=== PATIENT | male | born 1965 | race Caucasian/White ===

== ENCOUNTER 2016-07-17 02:40 | Emergency (ER) | payer OTHER ==
[~2016-07-17] VITALS: Ht 180.3 cm; Wt 74.8 kg
[~2016-07-17 02:40] MED LIST: BLOO-140 IN; INSU100V13 SQ; INSU100V27 SQ
[2016-07-17] MEDS ORDERED: IV NS 0.9% 1,000 ML BAG IV ONE (03:30)
[2016-07-17 03:39] LABS: DIFF TOTAL % 100 %; EOSINOPHILS # (AUTO) 0.3 /CMM (0.0-0.7); HEMATOCRIT 31 % (39-51); HEMOGLOBIN 10.3 g/dL (13.5-17.5); LYMPHOCYTES # (AUTO) 1.4 /CMM (0.8-4.8); LYMPHOCYTES % (AUTO) 25.5 % (20.0-44.0); MEAN CORPUSCULAR HEMOGLOBIN 33 PG (26.0-33.0); MEAN CORPUSCULAR HGB CONC 34 g/dl (31.0-36.0); MEAN CORPUSCULAR VOLUME 97 fL (80-96); MONOCYTES # (AUTO) 0.3 /CMM (0.1-1.30); MONOCYTES % (AUTO) 6.1 % (2.0-12.0); NEUTROPHILS # (AUTO) 3.4 /CMM (1.8-8.9); NEUTROPHILS % (AUTO) 62.4 % (43.0-81.0); PLATELET COUNT (AUTO) 174 /CMM (150-450); RED BLOOD CELL COUNT(AUTO) 3.18 MIL/uL (4.5-6.0); WHITE BLOOD COUNT (AUTO) 5.4 K/uL (4.3-11.0)
[2016-07-17 03:53] LABS: ALANINE AMINOTRANSFERASE 85 U/L (12-78); ALBUMIN 3.4 g/dL (3.4-5.0); ANION GAP 12 (5-14); ASPARTATE AMINOTRANSFERASE 97 U/L (15-37); BILIRUBIN,DIRECT 0.2 mg/dL (0.0-0.2); BILIRUBIN,TOTAL 0.5 mg/dL (0.2-1.0); CALCIUM, SERUM 9.4 mg/dL (8.5-10.1); CARBON DIOXIDE 29 mmol/L (21-32); CHLORIDE 100 mmol/L (98-107); CREATININE 1.8 mg/dL (0.6-1.3); GFR 40 mL/min (>60); GLUCOSE 341 mg/dL (74-106); INDIRECT BILIRUBIN 0.3 mg/dL (0.0-1.1); POTASSIUM 4.3 mmol/L (3.5-5.1); SALICYLATE 4.3 mg/dL (2.8-20.0); SODIUM SERUM 137 mmol/L (136-145); TOTAL PROTEIN, SERUM 7.1 g/dL (6.4-8.2); UREA NITROGEN, BLOOD 15 mg/dL (7-18)
[2016-07-17 03:53] LABS: ABG BASE EXCESS 3.1 mmol/L; ABG HCO3 27.8 mmol/L; ABG PCO2 42.6 mmHg (35.0-45.0); ABG PH 7.432 (7.350-7.450); ABG PO2 73.3 mmHg (75.0-100.0); ABG TOTAL HEMOGLOBIN 11.2 G/dL (13.5-18.0); AaDO2 25.4 mmHg; O2Hb 91.2 % (94.0-97.0)
[2016-07-17] MEDS ORDERED: IV SET PRIMARY 1 EA INFUS.SET MC ONE (03:58)
[2016-07-17] MEDS ORDERED: IV NS 0.9% 1,000 ML ONE (03:58)
[2016-07-17 05:22] LABS: ACETAMINOPHEN 0 ug/ml (10-30)
[2016-07-17 06:45] LABS: KETONES,URINE NEGATIVE (NEGATIVE); LEUKOCYTE ESTERASE ,URINE NEGATIVE (NEGATIVE); PH,URINE 6.5 (5.0-8.0)
[2016-07-17 06:49] LABS: ADD UA MICROSCOPIC YES
[2016-07-17 06:50] LABS: ADD URINE CULTURE NO; RBC,URINE 0-2 /HPF (0-2); WBC,URINE 0-2 /HPF (0-3)
[2016-07-17 07:09] LABS: CANNABINOID, URINE NEGATIVE (NEGATIVE); PHENCYCLIDINE SCREEN,URINE NEGATIVE (NEGATIVE)
[2016-07-17 10:21] VITALS: BP 128/75
== END 2016-07-17 10:23 ==
LOC: ER 02:40
DX: F32.9 Major depressive disorder, single episode, unspecified (principal); R45.851 Suicidal ideations; E11.65 Type 2 diabetes mellitus with hyperglycemia; R74.8 Abnormal levels of other serum enzymes; F17.200 Nicotine dependence, unspecified, uncomplicated; G62.9 Polyneuropathy, unspecified; Z79.4 Long term (current) use of insulin; Z90.49 Acquired absence of other specified parts of digestive tract
CPT/HCPCS: 36415; 36600; 80048; 80076; 80305; 81001; 82962; 85025; 96360; 99285; A4606; G0480; G0481; G0482; J7030; Z7610; 81000-TC; G6038-TC; G6039-TC; G6040-TC

== ENCOUNTER 2016-12-15 19:41 | Inpatient (IN) | payer OTHER ==
[~2016-12-15] VITALS: Ht 175.3 cm; Wt 72.3 kg
[~2016-12-15 19:41] MED LIST changes: -INSU100V13 SQ; +INSU100V7 SQ
--- NOTE | 2016-12-15 19:42 | NUR ---
[facility] ER BED 16. HERE FOR ETOH. PT STATES DRINK TWO BIG CANS OF BEER TODAY AND STARTED FEELING SICK. GENERALIZED BODY ACHES. PT'S BLOOD SUGAR WAS 220 PER REPORT. GOWNED AND PLACED ON MONITOR. STABLE VITALS. AWAITING MD CALZADA.
[2016-12-15] MEDS ORDERED: IV NS 0.9% 1,000 ML BAG IV ONE (20:00)
--- NOTE | 2016-12-15 20:00 | NUR ---
PT REFUSED EKG. DR. SALAZAR NOTIFIED.
[2016-12-15 20:11] LABS: BASOPHILS % (AUTO) 0.5 % (0.0-2.0); EOSINOPHILS # (AUTO) 0.1 /CMM (0.0-0.7); EOSINOPHILS % (AUTO) 1.5 % (0.0-6.0); HEMATOCRIT 46 % (39-51); HEMOGLOBIN 15.4 g/dL (13.5-17.5); LYMPHOCYTES # (AUTO) 1.7 /CMM (0.8-4.8); LYMPHOCYTES % (AUTO) 27.7 % (20.0-44.0); MEAN CORPUSCULAR HEMOGLOBIN 32 PG (26.0-33.0); MEAN CORPUSCULAR HGB CONC 34 g/dl (31.0-36.0); MEAN CORPUSCULAR VOLUME 94 fL (80-96); MONOCYTES # (AUTO) 0.3 /CMM (0.1-1.30); MONOCYTES % (AUTO) 4.9 % (2.0-12.0); NEUTROPHILS # (AUTO) 4.1 /CMM (1.8-8.9); NEUTROPHILS % (AUTO) 65.4 % (43.0-81.0); PLATELET COUNT (AUTO) 198 /CMM (150-450); RDW COEFFICIENT OF VARIATION 14.5 (11.5-15.0); RED BLOOD CELL COUNT(AUTO) 4.84 MIL/uL (4.5-6.0); WHITE BLOOD COUNT (AUTO) 6.2 K/uL (4.3-11.0)
--- NOTE | 2016-12-15 20:12 | NUR ---
DR SALAZAR AT BEDSIDE FOR EVAL.
[2016-12-15] MEDS ORDERED: IV SET PRIMARY 1 EA INFUS.SET MC ONE (20:13)
[2016-12-15] MEDS ORDERED: IV NS 0.9% 1,000 ML ONE ×2 (20:13→23:05)
[2016-12-15] MEDS ORDERED: ACETAMINOPHEN ES 500 MG TABLET ONE (20:18)
[2016-12-15 20:27] LABS: TROPONIN I 0.086 ng/mL (0.00-0.056)
[2016-12-15] MEDS ORDERED: ONDANSETRON 4 MG TAB.RAPDIS ONE (20:27)
[2016-12-15] MEDS ORDERED: ACETAMINOPHEN ES 500 MG TABLET PO ONE (20:30)
--- NOTE | 2016-12-15 20:32 | NUR ---
PT REFUSING TYLENOL AND REQUESTED ZOFRAN FOR NAUSEA. DR SALAZAR AWARE. ZOFRAN 4MG SL GIVEN PER ERMD VERBAL ORDER.
--- NOTE | 2016-12-15 20:43 | NUR ---
PT TO RADIOLOGY FOR HEAD CT SCAN VIA [facility].
[2016-12-15 20:53] LABS: CREATININE 1.5 mg/dL (0.6-1.3); POTASSIUM 4.2 mmol/L (3.5-5.1)
--- NOTE | 2016-12-15 20:55 | NUR ---
PT IS REQUESTING IV PAIN MEDICATION. AGITATED, YELLING AND CURSING AT STAFF. DR SALAZAR MADE AWARE.
[2016-12-15] MEDS ORDERED: ONDANSETRON 4 MG TAB.RAPDIS SL ONE (21:00)
[2016-12-15 21:02] LABS: ALBUMIN 3.9 g/dL (3.4-5.0); BILIRUBIN,DIRECT 0.1 mg/dL (0.0-0.2); BILIRUBIN,TOTAL 0.5 mg/dL (0.2-1.0); SALICYLATE 4.8 mg/dL (2.8-20.0); TOTAL PROTEIN, SERUM 7.8 g/dL (6.4-8.2)
--- NOTE | 2016-12-15 21:20 | NUR ---
TELE 304
--- NOTE | 2016-12-15 21:25 | NUR ---
RADIOLOGY AT BEDSIDE FOR CHEST XRAY.
--- NOTE | 2016-12-15 21:35 | NUR ---
PAGED DR EDWIN TILLMAN CIGAR PACKER AND GRADER FOR [facility]
--- NOTE | 2016-12-15 21:47 | NUR ---
BLOOD SUGAR RECHECK 246 MG/DL. ERMD AWARE.
--- NOTE | 2016-12-15 22:08 | NUR ---
REPORT GIVEN TO [facility]. PT AWAITING TREANSFER TO FLOOR.
[2016-12-15 22:14] VITALS: BP 111/71
--- NOTE | 2016-12-15 22:14 | NUR ---
PATIENT RECEIVED FROM ER, WITH DX OF NSTEMI AND SYNCOPE, ALERT AND ORIENTED X4, CALM, NO SOB, NO RESPIRATORY DISTRESS, ON ROOM AIR, 02 SAT 98%, LUNG SOUNDS ARE CLEAR, DENIES ANY PAIN AT THIS TIME, ABDOMEN SOFT AND NON-TENDER, CONTINENT OF BOWEL AND BLADDER. ABLE TO USE URINAL. STEADY GAIT, SKIN ASSESSMENT PERFORMED. OVERALL SKIN CONDITION IS INTACT, ORIENTED TO USE OF CALL LIGHT, TOILET, AND TV CONTROL. KEPT SAFE AND COMFORTABLE, NEEDS ATTENDED, WILL CONTINUE TO MONITOR.
[2016-12-15] MEDS ORDERED: ONDANSETRON HCL/PF 4 MG/2 ML VIAL IVP PRN (22:30)
[2016-12-15] MEDS ORDERED: ZOLPIDEM TARTRATE 5 MG TABLET PO PRN (22:30)
[2016-12-15] MEDS ORDERED: ACETAMINOPHEN 325 MG TABLET PO PRN (22:30)
[2016-12-15] MEDS ORDERED: Z GUARD REMEDY 2 OZ OINT TP PRN (22:30)
[2016-12-15] MEDS ORDERED: MAGNESIUM HYDROXIDE 30 ML UDC PO PRN (22:30)
[2016-12-15] MEDS ORDERED: DEXTROSE 50%-WATER 50 ML DISP.SYRIN IV PRN (22:30)
[2016-12-15] MEDS ORDERED: MAG HYDROX/AL HYDROX/SIMETH 30 ML UDC PO PRN (22:30)
[2016-12-15] MEDS ORDERED: ASPIRIN 81 MG TAB.CHEW PO ONE (22:30)
[2016-12-15] MEDS ORDERED: ASPIRIN 81 MG TAB.CHEW ONE (23:03)
[2016-12-15] MEDS ORDERED: IV SET PRIMARY PUMP SET 1 EA INFUS.SET MC ONE (23:05)
--- NOTE | 2016-12-15 23:14 | NUR ---
SMOKING CESSATION PROVIDED TO PATIENT, DR. TILLMAN ORDERED NICOTINE PATCH 21 MG DAILY.
[2016-12-15] MEDS: IV NS 0.9% 1,000 ML IV PRN (23:16)
--- NOTE | 2016-12-15 23:19 | NUR ---
BG 235 MG/DL
[2016-12-16] VITALS (8 sets, daily range): BP systolic 131–157; BP diastolic 83–96
[2016-12-16] MEDS ORDERED: HYDROCODONE/APAP 5/325MG 1 EACH TABLET ONE (05:15)
[2016-12-16] MEDS: HYDROCODONE/APAP 5/325MG 1 EACH TABLET PO PRN ×5 (05:22→22:28)
[2016-12-16] MEDS: INSULIN REGULAR, HUMAN 100 UNIT/ML 3 ML VIAL SQ PRN ×3 (06:25→17:56)
--- NOTE | 2016-12-16 06:30 | NUR ---
PATIENT IS ALERT AND AWAKE, NO SOB, NO RESPIRATORY DISTRESS, PAIN TO RIGHT SIDE OF ABDOMEN IS NOW 4/10, DENIES CHEST PAIN, RIGHT AC PERIPHERAL LINE IS PATENT AND INFUSING WELL. NO ADVERSE CHANGE OF CONDITION DURING SHIFT, ALL NEEDS ATTENDED, CALL LIGHT WITHIN REACH.
--- NOTE | 2016-12-16 07:13 | NUR ---
SINGING TELEGRAM PERFORMER OPENING NOTES RECEIVED PATIENT AWAKE IN BED IN NO ACUTE SIGNS OF DISTRESS. A/O X 4, NO COMPLAINTS OF PAIN OR DISCOMFORTS AT THIS TIME. ON TELE-MONITORING WITH READING OF SR WITH HR OF 90-100 AT THIS TIME. ON ROOM AIR, NO RESPIRATORY DISTRESS NOTED. IV ACCESS ON RIGHT AC INTACT AND PATENT WITH IVF OF NS @100ML/HR INFUSING WELL. CALL LIGHT WITHIN REACH. BED LOW AND LOCKED. WILL CONTINUE TO MONITOR ACCORDINGLY.
[2016-12-16 07:29] LABS: BASOPHILS % (AUTO) 0.8 % (0.0-2.0); EOSINOPHILS # (AUTO) 0.2 /CMM (0.0-0.7); EOSINOPHILS % (AUTO) 3.1 % (0.0-6.0); HEMATOCRIT 37 % (39-51); HEMOGLOBIN 13.2 g/dL (13.5-17.5); LYMPHOCYTES # (AUTO) 1.5 /CMM (0.8-4.8); LYMPHOCYTES % (AUTO) 30.6 % (20.0-44.0); MEAN CORPUSCULAR HEMOGLOBIN 33 PG (26.0-33.0); MEAN CORPUSCULAR HGB CONC 36 g/dl (31.0-36.0); MEAN CORPUSCULAR VOLUME 92 fL (80-96); MONOCYTES # (AUTO) 0.3 /CMM (0.1-1.30); MONOCYTES % (AUTO) 5.7 % (2.0-12.0); NEUTROPHILS % (AUTO) 59.8 % (43.0-81.0); PLATELET COUNT (AUTO) 163 /CMM (150-450); RDW COEFFICIENT OF VARIATION 15.4 (11.5-15.0); RED BLOOD CELL COUNT(AUTO) 4.01 MIL/uL (4.5-6.0); WHITE BLOOD COUNT (AUTO) 4.9 K/uL (4.3-11.0)
[2016-12-16 07:56] LABS: CHOLESTEROL 156 mg/dL (<200); HDL CHOLESTEROL 32 mg/dL (40-60); LDL 65 mg/dL (0-99); TRIGLYCERIDES 298 mg/dL (30-150)
[2016-12-16 07:57] LABS: ALBUMIN 3.3 g/dL (3.4-5.0); BILIRUBIN,TOTAL 0.6 mg/dL (0.2-1.0); CALCIUM, SERUM 8.5 mg/dL (8.5-10.1); CREATININE 1.5 mg/dL (0.6-1.3); MAGNESIUM 1.8 mg/dL (1.8-2.4); PHOSPHORUS 3.1 mg/dL (2.5-4.9); POTASSIUM 3.9 mmol/L (3.5-5.1); TOTAL PROTEIN, SERUM 6.8 g/dL (6.4-8.2)
[2016-12-16] MEDS: FOLIC ACID 1 MG TABLET PO SCH (08:15)
[2016-12-16] MEDS: BLOOD SUGAR DIAGNOSTIC 1 EACH STRIP IN SCH ×4 (08:15→22:12)
[2016-12-16] MEDS: THIAMINE HCL 100 MG TABLET PO SCH (08:15)
[2016-12-16] MEDS: PANTOPRAZOLE 40 MG TABLET.DR PO SCH (08:15)
[2016-12-16] MEDS: NICOTINE PATCH (21MG) 21 MG PATCH.TD24 TD SCH (08:17)
[2016-12-16] MEDS: INSULIN DETEMIR 100 UNIT/ML CARTRIDGE SQ SCH (09:35)
[2016-12-16] MEDS: IV NS 0.9% 1,000 ML IV PRN (12:44)
[2016-12-16] MEDS: GABAPENTIN 300 MG CAPSULE PO SCH (17:29)
--- NOTE | 2016-12-16 18:08 | NUR ---
RN NOTES EEG DONE, RESULTS PENDING. WILL FOLLOW-UP
--- NOTE | 2016-12-16 18:49 | NUR ---
[employer] FACTORY WORKER CLOSING NOTES PATIENT IN BED AWAKE AND WATCHING TV. A/O X 4 WITH COMPLAINTS OF PAIN TO RIGHT SIDE OF ABDOMEN THIS TOUR, PRN NORCO 5/225MG GIVEN WITH GOOD RESULTS. ALL NEEDS AND CARE PROVIDED WELL. ON TELE-MONITORING WITH READING OF SINUS TACHY WITH HR OF 107 AT THIS TIME. ON ROOM AIR, NO SOB NOTED. IV ACCESS ON RIGHT AC INTACT AND PATENT WITH IVF OF NS @100ML/HR INFUSING WELL. CALL LIGHT WITHIN REACH. BED LOW AND LOCKED. ALL SAFETY PRECAUTIONS MAINTAINED. WILL CONTINUE TO MONITOR ACCORDINGLY.
--- NOTE | 2016-12-16 20:00 | NUR ---
MS REEL OPERATOR INITIAL NOTES RECEIVED PT IN BED AWAKE AND ALERT WATCHING TV AT THIS TIME, DENIES ANY PAIN OR ANY DISCOMFORT. DENIES ANY CHEST PAIN. NS AT 100ML/HR INFUSING ON HIS RIGHT AC PATENT AND INTACT. KEPT HIM COMFORTABLE AT ALL TIMES. WILL CONTINUE TO MONITOR. PLACE CALL LIGHT AT REACH.
[2016-12-16] MEDS: LORAZEPAM 1 MG TABLET PO PRN (20:40)
--- NOTE | 2016-12-16 20:40 | NUR ---
MS THRESHING MACHINE OPERATOR NOTES ATIVAN GIVEN PER PT REQUESTED ORDERED. SAFETY PRECAUTION APPLIED FOR PT SAFETY. PLACE CALL LIGHT AT REACH.
[2016-12-16] MEDS: *INSULIN REGULAR(HUMULIN R)HUM 100 UNIT/ML VIAL SQ PRN (22:17)
--- NOTE | 2016-12-16 22:30 | NUR ---
WIRE ROLLER/NOTES BLOOD SUGAR CHECKED DONE 238, 4 UNITS OF INSULIN GIVEN , SNACKS ALSO SERVED. NORCO TABLET ALSO GIVEN FOR HIS PAIN ON HIS RIGHT SIDE. KEPT HIM COMFORTABLE AT ALL TIMES. WILL CONTINUE TO MONITOR. PLACE CALL LIGHT AT REACH.
--- NOTE | 2016-12-17 01:35 | NUR ---
ICT SECURITY SPECIALIST/NOTES PT SLEEPING COMFORTABLY AT THIS TIME. RESPIRATION EVEN AND UN-LABORED. KEPT HIM COMFORTABLE AT ALL TIMES. WILL CONTINUE TO MONITOR. PLACE CALL LIGHT AT REACH.
[2016-12-17] MEDS: HYDROCODONE/APAP 5/325MG 1 EACH TABLET PO PRN ×5 (03:55→21:19)
[2016-12-17] MEDS: LORAZEPAM 1 MG TABLET PO PRN ×4 (06:03→20:03)
[2016-12-17] MEDS: BLOOD SUGAR DIAGNOSTIC 1 EACH STRIP IN SCH ×4 (06:03→21:16)
--- NOTE | 2016-12-17 06:03 | NUR ---
LONG TERM CARE PHLEBOTOMIST NOTES ATIVAN GIVEN PER PT REQUESTED. PT AWARE OF POSSIBLE SIDE EFFECT. RESPIRATION EVEN AND UNLABORED. KEPT HIM COMFORTABLE AT ALL TIMES. PLACE CALL LIGHT AT REACH.
[2016-12-17] MEDS: INSULIN REGULAR, HUMAN 100 UNIT/ML 3 ML VIAL SQ PRN ×2 (06:06→12:09)
[2016-12-17] MEDS: PANTOPRAZOLE 40 MG TABLET.DR PO SCH (06:06)
[2016-12-17 06:53] LABS: BASOPHILS % (AUTO) 0.4 % (0.0-2.0); EOSINOPHILS # (AUTO) 0.1 /CMM (0.0-0.7); EOSINOPHILS % (AUTO) 1.9 % (0.0-6.0); HEMATOCRIT 37 % (39-51); HEMOGLOBIN 13.1 g/dL (13.5-17.5); LYMPHOCYTES # (AUTO) 1.6 /CMM (0.8-4.8); LYMPHOCYTES % (AUTO) 29.5 % (20.0-44.0); MEAN CORPUSCULAR HEMOGLOBIN 33 PG (26.0-33.0); MEAN CORPUSCULAR HGB CONC 35 g/dl (31.0-36.0); MEAN CORPUSCULAR VOLUME 93 fL (80-96); MONOCYTES # (AUTO) 0.5 /CMM (0.1-1.30); MONOCYTES % (AUTO) 8.6 % (2.0-12.0); NEUTROPHILS # (AUTO) 3.2 /CMM (1.8-8.9); NEUTROPHILS % (AUTO) 59.6 % (43.0-81.0); PLATELET COUNT (AUTO) 132 /CMM (150-450); RDW COEFFICIENT OF VARIATION 15.5 (11.5-15.0); RED BLOOD CELL COUNT(AUTO) 3.99 MIL/uL (4.5-6.0); WHITE BLOOD COUNT (AUTO) 5.4 K/uL (4.3-11.0)
--- NOTE | 2016-12-17 06:57 | NUR ---
MS LANDS RESOURCE MANAGER CLOSING NOTES PT RESTING AT THIS TIME BLOOD SUGAR 166, 4 UNITS OF INSULIN WILL BE ADMINISTERED BY AM NURSE. NO SIGNS IF HYPO/HYPER GLYCEMIA NOTED. STABLE FIONA THE NIGHT AND ALL NEEDS MET. ENDORSE TO AM NURSE FOR CONTINUITY OF CARE. PLACE CALL LIGHT AT REACH.
--- NOTE | 2016-12-17 07:15 | NUR ---
MS RN OPENING NOTES PATIENT RECEIVED AWAKE AND WATCHING TV IN BED. A/O X 4, NO COMPLAINTS OF PAIN OR DISCOMFORTS AT THIS TIME. ON ROOM AIR, BREATHING EVEN AND UNLABORED. IV ACCESS ON RIGHT AC INTACT AND PATENT WITH IVF OF NS @100ML/HR INFUSING WELL. CALL LIGHT WITHIN REACH. BED LOW AND LOCKED. WILL CONTINUE TO MONITOR ACCORDINGLY.
[2016-12-17 07:21] LABS: CALCIUM, SERUM 9.2 mg/dL (8.5-10.1); CREATININE 1.5 mg/dL (0.6-1.3)
[2016-12-17 08:00] VITALS: BP_SYST 112; BP_SYST 133; BP_SYST 150; BP_DIAS 64; BP_DIAS 86; BP_DIAS 94
[2016-12-17] MEDS: NICOTINE PATCH (21MG) 21 MG PATCH.TD24 TD SCH (08:20)
[2016-12-17] MEDS: THIAMINE HCL 100 MG TABLET PO SCH (08:20)
[2016-12-17] MEDS: FOLIC ACID 1 MG TABLET PO SCH (08:20)
[2016-12-17] MEDS: GABAPENTIN 300 MG CAPSULE PO SCH ×2 (08:20→17:21)
[2016-12-17] MEDS ORDERED: IV NS 0.9% 1,000 ML IV PRN ×2 (09:21→10:00)
[2016-12-17] MEDS: INSULIN DETEMIR 100 UNIT/ML CARTRIDGE SQ SCH (09:37)
--- NOTE | 2016-12-17 11:00 | NUR ---
RN NOTES PATIENT NOTED RESTLESS AND ANXIOUS, PRN ATIVAN IM TAB GIVEN AT 1028H. PT CALM AND QUIETLY NOW WATCHING TV AT THIS TIME. NO C/O OF SOB VOICED. WILL CONTINUE TO MONITOR.
[2016-12-17] MEDS: IV NS 0.9% 1,000 ML IV SCH ×2 (11:57→17:21)
[2016-12-17] MEDS ORDERED: ENOXAPARIN SODIUM 40 MG/0.4 ML DISP.SYRIN SQ SCH (12:54)
--- NOTE | 2016-12-17 16:16 | NUR ---
RN NOTES RECEIVED CALL FROM [facility] MEDICAL MICROBIOLOGY DEPARTMENT AND INFORMED THAT PT IS POSITIVE FOR MRSA OF RIGHT NARE. CHARGE NURSE MADE AWARE. PATIENT INFORMED AND VERBALIZED UNDERSTANDING. CONTACT ISOLATION ENFORCED IMMEDIATELY. WILL CONTINUE TO MONITOR.
[2016-12-17] MEDS: MUPIROCIN OINT 2% 22 GM TUBE SCH ×2 (18:00→20:10)
[2016-12-17 18:14] VITALS: BP 149/89
--- NOTE | 2016-12-17 18:43 | NUR ---
RN NOTES PT'S ABX BACTROBAN OINTMENT NOT ADMINISTERED AT 1800 TO NOSTRILS MEDICATION NOT AVAILABLE AT THIS TIME. FIRST DOSE WILL START AT 2100 TONIGHT. WILL ENDORSED TO ANGLE SHEAR OPERATOR NURSE.
--- NOTE | 2016-12-17 19:16 | NUR ---
RN CLOSING NOTES PATIENT RESTING IN BED A/O X 4. ABLE TO VOICE OUT NEEDS AND CONCERNS. CONTACT ISOLATION MAINTAINED FOR MRSA OF NARES. ALL NEEDS AND CARE PROVIDED WELL. ON ROOM AIR, BREATHING EVEN WITH NO SOB NOTED. IV ACCESS ON RIGHT AC INTACT AND PATENT WITH IVF OF NS @200ML/HR INFUSING WELL, NO SIGNS OF INFILTRATION NOTED. CALL LIGHT WITHIN REACH. BED LOW AND LOCKED. ALL SAFETY PRECAUTIONS MAINTAINED. ENDORSED TO RECREATIONAL SPORTS DIRECTOR FOR MELVI..
--- NOTE | 2016-12-17 19:39 | NUR ---
MS CAREER COACH INITIAL NOTES RECEIVED PT IN BED AWAKE AND ALERT WITH IVF OF NS AT 200 ML/HR ON HIS RIGHT AC PATENT AND INTACT. NO SIGNS OF ANY ACUTE DISTRESS NOTED. PT ASKING IF HE CAN TAKE A SHOWER AND HE STATED HE ASKED THE AM NURSE EARLIER . I SPOKE TO HIM I NEED TO GET AN ORDER FIRST BECAUSE HE ADMITTED HERE DX OF SYNCOPE .AND PT UNDERSTOOD WELL. HE ALSO ASKING FOR HIS ATIVAN BEFORE HE STARTED GETTING ANXIOUS. ISOLATION AND FALL PRECAUTION IMPLEMENTED AND OBSERVED. PLACE CALL LIGHT AT REACH.
[2016-12-17 20:00] VITALS: BP 159/96
--- NOTE | 2016-12-17 20:03 | NUR ---
MS ALLISON NOTES ATIVAN 1MG PO GIVEN ORDERED PER PT REQUESTED. BACTROBAN OINTMENT APPLIED ON BOTH NARES. KEPT HIM WARM AND COMFORTABLE AT ALL TIMES. PLACE CALL LIGHT AT REACH.
[2016-12-17 20:46] VITALS: BP 159/96
[2016-12-17] MEDS: *INSULIN REGULAR(HUMULIN R)HUM 100 UNIT/ML VIAL SQ PRN (21:18)
--- NOTE | 2016-12-17 21:20 | NUR ---
MS LAUNDRY BAG PUNCH OPERATOR NOTES BLOOD SUGAR CHECKED DONE 194, 3 UNITS OF INSULIN GIVEN, SNACKS ALSO SERVED. PT STILL ON IVF NS AT 200ML/HR . NORCO TABLET ALSO GIVEN PER HIS PAIN ON HIS RUQ , NO N/V NOTED. KEPT HIM WARM AND COMFORTABLE AT ALL TIMES. PLACE CALL LIGHT AT REACH.
--- NOTE | 2016-12-17 22:35 | NUR ---
KIDNEY TRIMMER/NOTES PT ASKING FOR HIS SLEEP MEDICATION. AMBIEN GIVEN ORDERED. SAFETY PRECAUTION APPLIED AND EDUCATE PATIENT REGARDING POSSIBLE SIDE EFFECT.WILL CONTINUE TO MONITOR.
[2016-12-17 22:47] VITALS: BP 123/69
[2016-12-18] MEDS: LORAZEPAM 1 MG TABLET PO PRN ×3 (00:31→10:55)
--- NOTE | 2016-12-18 00:31 | NUR ---
CHIEF LOAD DISPATCHER/NOTES RE- ASSESS CHECKED PT IF HE'S SLEEPING , SEEN HIM WATCHING TV, AND HE STATED HE CAN'T SLEEP. HE ASKED FOR ATIVAN. 1 MG GIVEN PO ORDERED. KEPT HIM SAFE AT ALL TIMES. WILL CONTINUE TO MONITOR.
[2016-12-18] MEDS: HYDROCODONE/APAP 5/325MG 1 EACH TABLET PO PRN ×3 (01:36→09:29)
--- NOTE | 2016-12-18 03:34 | NUR ---
concrete boom operator notes pt sleeping comfortably at this time respiration even and non-labored, not in any acute distress noted. kept him warm and comfortable at all times. will continue to monitor. place call light at reach.
[2016-12-18] MEDS: BLOOD SUGAR DIAGNOSTIC 1 EACH STRIP IN SCH ×2 (06:35→11:42)
[2016-12-18] MEDS: PANTOPRAZOLE 40 MG TABLET.DR PO SCH (06:35)
[2016-12-18] MEDS: *INSULIN REGULAR(HUMULIN R)HUM 100 UNIT/ML VIAL SQ PRN (06:39)
--- NOTE | 2016-12-18 07:30 | NUR ---
DANCING TEACHER CLOSING NOTES' BLOOD SUGAR TEST 376, 10 UNITS OF INSULIN GIVEN AND PT RESTING AFTER ATIVAN AND NORCO GIVEN EARLIER. NO SIGNS OF ANY ACUTE DISTRESS NOTED. KEPT HIM WARM AND COMFORTABLE AT ALL TIMES. STABLE FIONA THE NIGHT. ENDORSE TO AM NURSE.
--- NOTE | 2016-12-18 07:30 | NUR ---
MS RN OPENING RECEIVED PATIENT A/OX4 DENIES SOB, DIFFICULTY BREATHING AND STATES CONSTANT PAIN ON THE RIGHT SIDE OF HIS BACK AND HEAD. PATIENT REQUESTING NORCO NEXT AND AWARE THIS IS DUE AT 0930 AGAIN. PATIENT ASKING TO GO SMOKE. NOTIFIED OF HOSPITAL POLICY FOR SMOKING AGAIN. PATIENT STATES NO OTHER NEEDS. APPEARS STABLE AT THIS TIME. CALL LIGHT IN REACH, BED LOWERED AND LOCKED, WILL ROUND Q2H OR LESS PER NEEDS
[2016-12-18 08:00] VITALS: BP 143/91
[2016-12-18 08:07] LABS: BASOPHILS % (AUTO) 0.2 % (0.0-2.0); EOSINOPHILS # (AUTO) 0.2 /CMM (0.0-0.7); EOSINOPHILS % (AUTO) 3.5 % (0.0-6.0); HEMATOCRIT 33 % (39-51); HEMOGLOBIN 11.7 g/dL (13.5-17.5); LYMPHOCYTES # (AUTO) 1.2 /CMM (0.8-4.8); LYMPHOCYTES % (AUTO) 25.8 % (20.0-44.0); MEAN CORPUSCULAR HEMOGLOBIN 33 PG (26.0-33.0); MEAN CORPUSCULAR HGB CONC 35 g/dl (31.0-36.0); MEAN CORPUSCULAR VOLUME 94 fL (80-96); MONOCYTES # (AUTO) 0.3 /CMM (0.1-1.30); MONOCYTES % (AUTO) 7.4 % (2.0-12.0); NEUTROPHILS # (AUTO) 2.8 /CMM (1.8-8.9); NEUTROPHILS % (AUTO) 63.1 % (43.0-81.0); PLATELET COUNT (AUTO) 105 /CMM (150-450); RDW COEFFICIENT OF VARIATION 15.8 (11.5-15.0); RED BLOOD CELL COUNT(AUTO) 3.54 MIL/uL (4.5-6.0); WHITE BLOOD COUNT (AUTO) 4.5 K/uL (4.3-11.0)
[2016-12-18 08:19] LABS: CALCIUM, SERUM 8.8 mg/dL (8.5-10.1); CREATININE 1.6 mg/dL (0.6-1.3); MAGNESIUM 1.8 mg/dL (1.8-2.4); POTASSIUM 4.2 mmol/L (3.5-5.1)
[2016-12-18] MEDS: THIAMINE HCL 100 MG TABLET PO SCH (08:26)
[2016-12-18] MEDS: GABAPENTIN 300 MG CAPSULE PO SCH (08:26)
[2016-12-18] MEDS: FOLIC ACID 1 MG TABLET PO SCH (08:26)
[2016-12-18] MEDS: MUPIROCIN OINT 2% 22 GM TUBE SCH (08:27)
[2016-12-18] MEDS: NICOTINE PATCH (21MG) 21 MG PATCH.TD24 TD SCH (08:28)
[2016-12-18] MEDS: INSULIN DETEMIR 100 UNIT/ML CARTRIDGE SQ SCH (08:37)
--- NOTE | 2016-12-18 08:55 | NUR ---
MS RN NOTES LAB CALLED IN RE TO HIGH BLOOD SUGAR. RECHECKED AND 347 POST BLOOD DRAW. LONG ACTING INSULIN GIVEN
[2016-12-18] MEDS ORDERED: LEVETIRACETAM (250 MG) 250 MG TABLET PO SCH (09:00)
[2016-12-18 10:15] LABS: BILIRUBIN,URINE NEGATIVE (NEGATIVE); BLOOD, URINE 1+ Ery/uL (NEGATIVE); COLOR,URINE YELLOW (YELLOW); KETONES,URINE NEGATIVE (NEGATIVE); LEUKOCYTE ESTERASE ,URINE NEGATIVE (NEGATIVE); NITRITE, URINE NEGATIVE (NEGATIVE); PROTEIN,URINE NEGATIVE (NEGATIVE); UGLUCOSE 3+ mg/dL (NEGATIVE); UROBILINOGEN,URINE 0.2 EU/dL (0.2)
[2016-12-18 10:19] LABS: APPEARANCE,URINE HAZY (CLEAR)
[2016-12-18 10:25] LABS: BACTERIA,URINE None seen /HPF (None Seen); MUCUS,URINE Rare /LPF (None Seen); SQUAMOUS EPITHELIAL CELL,UR Few /HPF (None Seen); WBC,URINE 0-2 /HPF (0-3)
[2016-12-18] MEDS ORDERED: INSU100V27 SQ (10:44)
[2016-12-18] MEDS ORDERED: BLOO-140 IN (10:44)
[2016-12-18] MEDS ORDERED: INSU100V7 SQ (10:44)
[2016-12-18] MEDS ORDERED: THIA100T74 PO (10:49)
[2016-12-18] MEDS ORDERED: ASPI81TA2 PO (10:49)
[2016-12-18] MEDS ORDERED: LEVE500T9 PO (10:49)
[2016-12-18] MEDS ORDERED: INSULIN GLARGINE, 100 UNIT/ML CARTRIDGE SQ SCH (11:00)
[2016-12-18] MEDS: INSULIN REGULAR, HUMAN 100 UNIT/ML 3 ML VIAL SQ PRN (11:46)
--- NOTE | 2016-12-18 13:26 | NUR ---
MS RN NOTES REMOVED PATIENT IV PRESSURE AND DRESSING APPLIED NO BLEEDING NOTED. RX GIVEN BY MD AND CALLED INTO PATIENT PHARMACY PER REQUEST. [facility] IN [place] [phone]. PER FINANCIAL AID COUNSELOR [facility] IS CALLING FOR TOOLROOM KEEPER TAXI FOR PATIENT. PANTS GIVEN TO PATIENT PER REQUEST.
--- NOTE | 2016-12-18 14:19 | NUR ---
MS RN NOTES PATIENT EDUCATED ON DISCHARGE, STATED UNDERSTANDING AND SIGNED. ALL BELONGINGS ACCOUNTED FOR AND PATIENT WAS MISSING 2 BLUE LIGHTERS. THEY WERE FOUND AND GIVEN TO PATIENT. [facility] SET UP TRANSPORT FOR PATIENT AND IS WAITING DOWNSTAIRS. PATIENT LEFT IN STABLE CONDITION NO COMPLICATIONS.
[2016-12-18] MEDS ORDERED: INSULIN DETEMIR 100 UNIT/ML CARTRIDGE SQ ONE (22:00)
== END 2016-12-18 15:00 | disposition home or self-care (01) | DRG 775 ==
LOC: ER 19:43 → TELE 21:22 → MED 12-16 10:53
PROVIDERS: ADMIT Family Medicine; ATTEND Family Medicine
DX: F10.239 Alcohol dependence with withdrawal, unspecified (principal); N17.0 Acute kidney failure with tubular necrosis; I21.4 Non-ST elevation (NSTEMI) myocardial infarction; E11.22 Type 2 diabetes mellitus with diabetic chronic kidney disease; E11.65 Type 2 diabetes mellitus with hyperglycemia; E87.1 Hypo-osmolality and hyponatremia; K86.0 Alcohol-induced chronic pancreatitis; F17.210 Nicotine dependence, cigarettes, uncomplicated; Z79.4 Long term (current) use of insulin; Y90.8 Blood alcohol level of 240 mg/100 ml or more; I12.9 Hypertensive chronic kidney disease with stage 1 through stage 4 chronic kidney disease, or unspecified chronic kidney disease; N18.9 Chronic kidney disease, unspecified; E78.5 Hyperlipidemia, unspecified; E86.1 Hypovolemia; F10.20 Alcohol dependence, uncomplicated; I25.10 Atherosclerotic heart disease of native coronary artery without angina pectoris; K21.9 Gastro-esophageal reflux disease without esophagitis; Z91.81 History of falling; G40.909 Epilepsy, unspecified, not intractable, without status epilepticus
CPT/HCPCS: 36415; 70450-TC; 71010-TC; 80048-TC; 80053-TC; 80061-TC; 80076-TC; 80305; 81000-TC; 82962-TC; 83690-TC; 83735-TC; 84100-TC; 84484-TC; 85025-TC; 87081-TC; 93307-TC; 95819-TC; A4606; G0480; J1650; J1815; J7030; Q0162; Z7610

== ENCOUNTER 2016-12-31 16:17 | Emergency (ER) | payer OTHER ==
[~2016-12-31] VITALS: Ht 162.6 cm; Wt 86.2 kg
[~2016-12-31 16:17] MED LIST changes: +ASPI81TA2 PO; +LEVE500T9 PO; +THIA100T74 PO
--- NOTE | 2016-12-31 16:59 | NUR ---
PATIENT LEFT WITHOUT BEING SEEN, ROJELIO WAS TRIAGED AND DID NOTWANT TO STAY IN ER AND DID NOT GIVE A REASON
[2016-12-31 17:02] VITALS: BP 130/81
== END 2016-12-31 17:03 | disposition home or self-care (01) ==
LOC: ER 16:20
DX: Z53.21 Procedure and treatment not carried out due to patient leaving prior to being seen by health care provider (principal)
CPT/HCPCS: A4606; Z7610

== ENCOUNTER 2017-01-02 05:07 | Inpatient (IN) | payer OTHER ==
[~2017-01-02] VITALS: Ht 180.3 cm; Wt 67.8 kg
[2017-01-02] MEDS ORDERED: MORPHINE SULFATE INJ 2 MG/ML DISP.SYRIN IV ONE (05:30)
[2017-01-02] MEDS ORDERED: IV NS 0.9% 1,000 ML BAG IV ONE ×2 (05:30→06:30)
[2017-01-02] MEDS ORDERED: ONDANSETRON HCL/PF 4 MG/2 ML VIAL IVP ONE ×2 (05:30→08:00)
[2017-01-02] MEDS ORDERED: IV NS 0.9% 1,000 ML ONE ×3 (05:53→06:33)
[2017-01-02] MEDS ORDERED: ONDANSETRON HCL/PF 4 MG/2 ML VIAL ONE ×2 (05:53→07:38)
[2017-01-02] MEDS ORDERED: MORPHINE SULFATE INJ 4 MG/ML DISP.SYRIN ONE ×2 (05:53→07:04)
[2017-01-02] MEDS ORDERED: IV SET PRIMARY 1 EA INFUS.SET MC ONE (05:53)
[2017-01-02 05:59] LABS: BASOPHILS # (AUTO) 0.1 /CMM (0.0-0.2); BASOPHILS % (AUTO) 1.8 % (0.0-2.0); EOSINOPHILS # (AUTO) 0.2 /CMM (0.0-0.7); EOSINOPHILS % (AUTO) 3.6 % (0.0-6.0); HEMATOCRIT 42 % (39-51); HEMOGLOBIN 14.7 g/dL (13.5-17.5); LYMPHOCYTES # (AUTO) 1.4 /CMM (0.8-4.8); LYMPHOCYTES % (AUTO) 30.3 % (20.0-44.0); MEAN CORPUSCULAR HEMOGLOBIN 33 PG (26.0-33.0); MEAN CORPUSCULAR HGB CONC 35 g/dl (31.0-36.0); MEAN CORPUSCULAR VOLUME 94 fL (80-96); MONOCYTES # (AUTO) 0.2 /CMM (0.1-1.30); MONOCYTES % (AUTO) 3.9 % (2.0-12.0); NEUTROPHILS # (AUTO) 2.9 /CMM (1.8-8.9); NEUTROPHILS % (AUTO) 60.4 % (43.0-81.0); PLATELET COUNT (AUTO) 171 /CMM (150-450); RDW COEFFICIENT OF VARIATION 15.6 (11.5-15.0); RED BLOOD CELL COUNT(AUTO) 4.49 MIL/uL (4.5-6.0); WHITE BLOOD COUNT (AUTO) 4.8 K/uL (4.3-11.0)
[2017-01-02 06:10] LABS: INR 0.93 (0.87-1.13); PROTHROMBIN TIME 9.9 SECS (9.5-12.7)
[2017-01-02 06:15] LABS: TROPONIN I < 0.017 ng/mL (0.00-0.056)
[2017-01-02 06:18] LABS: ALANINE AMINOTRANSFERASE 28 U/L (12-78); ALBUMIN 3.8 g/dL (3.4-5.0); ALKALINE PHOSPHATASE 137 U/L (46-116); ASPARTATE AMINOTRANSFERASE 40 U/L (15-37); BILIRUBIN,DIRECT 0.2 mg/dL (0.0-0.2); BILIRUBIN,TOTAL 0.8 mg/dL (0.2-1.0); CALCIUM, SERUM 9.2 mg/dL (8.5-10.1); CARBON DIOXIDE 27 mmol/L (21-32); CHLORIDE 92 mmol/L (98-107); CREATININE 1.5 mg/dL (0.6-1.3); LIPASE 41 U/L (73-393); POTASSIUM 4.4 mmol/L (3.5-5.1); SODIUM SERUM 129 mmol/L (136-145); TOTAL PROTEIN, SERUM 7.8 g/dL (6.4-8.2); UREA NITROGEN, BLOOD 11 mg/dL (7-18)
[2017-01-02 06:20] LABS: GLUCOSE 401 mg/dL (74-106)
[2017-01-02] MEDS ORDERED: INSULIN REGULAR, HUMAN 100 UNIT/ML 10 ML VIAL ONE (06:26)
[2017-01-02] MEDS ORDERED: INSULIN REGULAR, HUMAN 100 UNIT/ML 10 ML VIAL SQ ONE (06:30)
[2017-01-02] MEDS ORDERED: IV SET PRIMARY PUMP SET 1 EA INFUS.SET MC ONE ×2 (06:33→06:56)
[2017-01-02] MEDS ORDERED: METRONIDAZOLE 500MG/ NS 100ML 100 ML IV ONE ×2 (06:55→07:00)
[2017-01-02] MEDS ORDERED: PIPERACILLIN /TAZOBACTAM 3.375 G VIAL IV ONE (06:56)
[2017-01-02 06:59] LABS: APPEARANCE,URINE CLEAR (CLEAR); BILIRUBIN,URINE NEGATIVE (NEGATIVE); BLOOD, URINE 1+ Ery/uL (NEGATIVE); COLOR,URINE YELLOW (YELLOW); KETONES,URINE TRACE (NEGATIVE); LEUKOCYTE ESTERASE ,URINE NEGATIVE (NEGATIVE); NITRITE, URINE NEGATIVE (NEGATIVE); PH,URINE 6.5 (5.0-8.0); PROTEIN,URINE NEGATIVE (NEGATIVE); UGLUCOSE 3+ mg/dL (NEGATIVE); UROBILINOGEN,URINE 0.2 EU/dL (0.2)
[2017-01-02] MEDS ORDERED: PIPERACILLIN /TAZOBACTAM 3.375 G in IV D5W 50 ML IV ONE (07:00)
[2017-01-02 07:03] LABS: BACTERIA,URINE None seen /HPF (None Seen); RBC,URINE 0-2 /HPF (0-2); SQUAMOUS EPITHELIAL CELL,UR 0-2 /HPF (None Seen); WBC,URINE 0-2 /HPF (0-3)
[2017-01-02] MEDS ORDERED: BLOO-668 IN (07:47)
[2017-01-02] MEDS ORDERED: INSU100V27 SQ (07:47)
[2017-01-02] MEDS ORDERED: THIA100T13 PO (07:47)
[2017-01-02] MEDS ORDERED: AMLO2.5T PO (07:47)
[2017-01-02] MEDS ORDERED: INSU100V7 SQ (07:47)
[2017-01-02] MEDS ORDERED: ASPI81TA2 PO (07:47)
[2017-01-02] MEDS ORDERED: GABA-534 PO (07:47)
[2017-01-02 08:50] VITALS: BP 150/86
[2017-01-02] MEDS ORDERED: MORPHINE SULFATE INJ 4 MG/ML DISP.SYRIN IV PRN (09:00)
[2017-01-02 09:30] VITALS: BP 150/86
[2017-01-02] MEDS: NYSTATIN (PYXIS) 500,000 UNIT/5 ML ORAL.SUSP PO SCH ×4 (10:14→21:03)
[2017-01-02] MEDS: NEOMY SULF/BACITRAC ZN/POLY 15 GM TUBE TP PRN ×2 (10:19→17:20)
[2017-01-02] MEDS: HYDROMORPHONE 1 MG/1 ML DISP.SYRIN IV PRN ×3 (10:19→19:53)
[2017-01-02] MEDS ORDERED: DEXTROSE 50%-WATER 50 ML DISP.SYRIN IV PRN (11:30)
[2017-01-02] MEDS ORDERED: ONDANSETRON HCL/PF 4 MG/2 ML VIAL IVP PRN (11:30)
[2017-01-02] MEDS ORDERED: ACETAMINOPHEN 325 MG TABLET PO PRN (11:30)
[2017-01-02] MEDS ORDERED: ZOLPIDEM TARTRATE 5 MG TABLET PO PRN (11:30)
[2017-01-02] MEDS ORDERED: Thiamine 100 MG in IV D5W 50 ML IV ONE (11:30)
[2017-01-02] MEDS: GABAPENTIN 300 MG CAPSULE PO SCH ×2 (12:05→17:18)
[2017-01-02] MEDS ORDERED: SECONDARY IV SET 1 EA INFUS.SET MC ONE (12:07)
[2017-01-02] MEDS: BLOOD SUGAR DIAGNOSTIC 1 EACH STRIP IN SCH ×3 (12:09→21:03)
[2017-01-02] MEDS: INSULIN REGULAR, HUMAN 100 UNIT/ML 3 ML VIAL SQ PRN ×2 (12:10→21:21)
[2017-01-02] MEDS: IV NS 0.9% 1,000 ML IV PRN ×2 (12:13→21:45)
[2017-01-02] MEDS: LORAZEPAM INJ 2 MG/ML VIAL IV PRN ×3 (12:15→21:53)
[2017-01-02] MEDS: INSULIN ASPART NOVOLOG 100 UNIT/ML CARTRIDGE SQ SCH ×2 (13:13→17:19)
[2017-01-02 16:20] VITALS: BP 148/92
[2017-01-02 20:00] VITALS: BP 147/100
[2017-01-02] MEDS: LEVETIRACETAM (250 MG) 250 MG TABLET PO SCH (21:03)
[2017-01-02] MEDS: INSULIN DETEMIR 100 UNIT/ML CARTRIDGE SQ SCH (21:22)
[2017-01-03] MEDS: HYDROMORPHONE 1 MG/1 ML DISP.SYRIN IV PRN ×5 (01:37→22:27)
[2017-01-03] MEDS: NYSTATIN (PYXIS) 500,000 UNIT/5 ML ORAL.SUSP PO SCH ×6 (01:37→21:45)
[2017-01-03] MEDS: BLOOD SUGAR DIAGNOSTIC 1 EACH STRIP IN SCH ×6 (01:40→21:45)
[2017-01-03 06:29] LABS: BASOPHILS % (AUTO) 0.4 % (0.0-2.0); EOSINOPHILS # (AUTO) 0.1 /CMM (0.0-0.7); EOSINOPHILS % (AUTO) 2.3 % (0.0-6.0); HEMATOCRIT 34 % (39-51); LYMPHOCYTES # (AUTO) 1.4 /CMM (0.8-4.8); LYMPHOCYTES % (AUTO) 28.2 % (20.0-44.0); MEAN CORPUSCULAR HEMOGLOBIN 33 PG (26.0-33.0); MEAN CORPUSCULAR HGB CONC 35 g/dl (31.0-36.0); MEAN CORPUSCULAR VOLUME 96 fL (80-96); MONOCYTES # (AUTO) 0.3 /CMM (0.1-1.30); MONOCYTES % (AUTO) 6.4 % (2.0-12.0); NEUTROPHILS # (AUTO) 3.1 /CMM (1.8-8.9); NEUTROPHILS % (AUTO) 62.7 % (43.0-81.0); PLATELET COUNT (AUTO) 127 /CMM (150-450); RDW COEFFICIENT OF VARIATION 16.1 (11.5-15.0); WHITE BLOOD COUNT (AUTO) 4.9 K/uL (4.3-11.0)
[2017-01-03 07:14] LABS: ALBUMIN 2.9 g/dL (3.4-5.0); BILIRUBIN,TOTAL 0.6 mg/dL (0.2-1.0); CALCIUM, SERUM 8.8 mg/dL (8.5-10.1); CREATININE 1.3 mg/dL (0.6-1.3); PHOSPHORUS 3.3 mg/dL (2.5-4.9); POTASSIUM 3.5 mmol/L (3.5-5.1)
[2017-01-03 07:24] LABS: THYROID STIMULATING HORMONE 3.572 uIU/mL (0.358-3.74)
[2017-01-03] MEDS: INSULIN ASPART NOVOLOG 100 UNIT/ML CARTRIDGE SQ SCH ×3 (07:30→17:14)
[2017-01-03 08:00] VITALS: BP 151/90
[2017-01-03] MEDS: PANTOPRAZOLE 40 MG VIAL IV SCH (09:18)
[2017-01-03] MEDS: LEVETIRACETAM (250 MG) 250 MG TABLET PO SCH ×2 (09:19→21:45)
[2017-01-03] MEDS: THIAMINE HCL 100 MG TABLET PO SCH (09:19)
[2017-01-03] MEDS: AMLODIPINE BESYLATE 2.5 MG TABLET PO SCH (09:19)
[2017-01-03] MEDS: GABAPENTIN 300 MG CAPSULE PO SCH ×3 (09:19→16:07)
[2017-01-03] MEDS: ASPIRIN 81 MG TAB.CHEW PO SCH (09:20)
[2017-01-03] MEDS: LORAZEPAM INJ 2 MG/ML VIAL IV PRN ×2 (13:57→18:57)
[2017-01-03 16:00] VITALS: BP 155/95
[2017-01-03] MEDS: IV NS 0.9% 1,000 ML IV PRN (16:05)
[2017-01-03] MEDS: INSULIN REGULAR, HUMAN 100 UNIT/ML 3 ML VIAL SQ PRN ×2 (17:19→22:28)
[2017-01-03 20:00] VITALS: BP 147/91
[2017-01-03] MEDS: INSULIN DETEMIR 100 UNIT/ML CARTRIDGE SQ SCH (22:28)
[2017-01-04] MEDS: BLOOD SUGAR DIAGNOSTIC 1 EACH STRIP IN SCH ×6 (01:26→21:10)
[2017-01-04] MEDS: NYSTATIN (PYXIS) 500,000 UNIT/5 ML ORAL.SUSP PO SCH ×6 (01:26→21:35)
[2017-01-04] MEDS: INSULIN REGULAR, HUMAN 100 UNIT/ML 3 ML VIAL SQ PRN ×5 (01:30→21:18)
[2017-01-04] MEDS: LORAZEPAM INJ 2 MG/ML VIAL IV PRN ×5 (02:18→22:33)
[2017-01-04] MEDS: HYDROMORPHONE 1 MG/1 ML DISP.SYRIN IV PRN ×4 (04:34→20:03)
[2017-01-04] MEDS: IV NS 0.9% 1,000 ML IV PRN (04:43)
[2017-01-04 06:49] LABS: BASOPHILS % (AUTO) 0.4 % (0.0-2.0); EOSINOPHILS # (AUTO) 0.1 /CMM (0.0-0.7); EOSINOPHILS % (AUTO) 3.6 % (0.0-6.0); HEMATOCRIT 35 % (39-51); HEMOGLOBIN 12.2 g/dL (13.5-17.5); LYMPHOCYTES # (AUTO) 1.3 /CMM (0.8-4.8); LYMPHOCYTES % (AUTO) 31.8 % (20.0-44.0); MEAN CORPUSCULAR HEMOGLOBIN 33 PG (26.0-33.0); MEAN CORPUSCULAR HGB CONC 34 g/dl (31.0-36.0); MEAN CORPUSCULAR VOLUME 97 fL (80-96); MONOCYTES # (AUTO) 0.3 /CMM (0.1-1.30); MONOCYTES % (AUTO) 6.6 % (2.0-12.0); NEUTROPHILS # (AUTO) 2.4 /CMM (1.8-8.9); NEUTROPHILS % (AUTO) 57.6 % (43.0-81.0); PLATELET COUNT (AUTO) 114 /CMM (150-450); RDW COEFFICIENT OF VARIATION 15.6 (11.5-15.0); RED BLOOD CELL COUNT(AUTO) 3.66 MIL/uL (4.5-6.0); WHITE BLOOD COUNT (AUTO) 4.1 K/uL (4.3-11.0)
[2017-01-04 06:56] LABS: ALBUMIN 2.8 g/dL (3.4-5.0); BILIRUBIN,TOTAL 0.5 mg/dL (0.2-1.0); CREATININE 1.4 mg/dL (0.6-1.3); MAGNESIUM 1.9 mg/dL (1.8-2.4); PHOSPHORUS 4.6 mg/dL (2.5-4.9); POTASSIUM 3.8 mmol/L (3.5-5.1)
[2017-01-04] MEDS: INSULIN ASPART NOVOLOG 100 UNIT/ML CARTRIDGE SQ SCH ×3 (07:30→17:42)
[2017-01-04 08:00] VITALS: BP 126/83
[2017-01-04] MEDS: LEVETIRACETAM (250 MG) 250 MG TABLET PO SCH ×2 (08:30→21:34)
[2017-01-04] MEDS: PANTOPRAZOLE 40 MG VIAL IV SCH (08:30)
[2017-01-04] MEDS: THIAMINE HCL 100 MG TABLET PO SCH (08:31)
[2017-01-04] MEDS: ASPIRIN 81 MG TAB.CHEW PO SCH (08:31)
[2017-01-04] MEDS: GABAPENTIN 300 MG CAPSULE PO SCH ×3 (08:31→16:27)
[2017-01-04] MEDS: AMLODIPINE BESYLATE 2.5 MG TABLET PO SCH (08:32)
[2017-01-04 15:58] VITALS: BP 158/94
[2017-01-04 16:00] VITALS: BP 158/74
[2017-01-04 20:00] VITALS: BP 159/100
[2017-01-04] MEDS: INSULIN DETEMIR 100 UNIT/ML CARTRIDGE SQ SCH (21:16)
[2017-01-04] MEDS ORDERED: LACTULOSE 10 G/15 ML UDC (PYXIS) PO PRN (21:30)
[2017-01-04] MEDS ORDERED: AMLODIPINE BESYLATE 10 MG TABLET ONE (21:30)
[2017-01-04] MEDS ORDERED: BISACODYL SUPP (10 MG) 10 MG/SUPP.RECT SUPP.RECT RC PRN (21:30)
[2017-01-04] MEDS ORDERED: SENNOSIDES 8.6 MG TABLET ONE (21:35)
[2017-01-04] MEDS: AMLODIPINE BESYLATE 10 MG TABLET PO SCH (21:35)
[2017-01-04] MEDS ORDERED: SENNOSIDES/DOCUSATE SODIUM 1 TAB TABLET ONE (21:38)
[2017-01-04] MEDS: SENNOSIDES/DOCUSATE SODIUM 1 TAB TABLET PO SCH (21:42)
[2017-01-05] MEDS: BLOOD SUGAR DIAGNOSTIC 1 EACH STRIP IN SCH ×7 (01:00→21:35)
[2017-01-05] MEDS: INSULIN REGULAR, HUMAN 100 UNIT/ML 3 ML VIAL SQ PRN ×5 (01:46→21:44)
[2017-01-05] MEDS: NYSTATIN (PYXIS) 500,000 UNIT/5 ML ORAL.SUSP PO SCH ×6 (01:54→21:36)
[2017-01-05] MEDS: IV NS 0.9% 1,000 ML IV PRN ×2 (01:54→17:07)
[2017-01-05] MEDS: INSULIN ASPART NOVOLOG 100 UNIT/ML CARTRIDGE SQ SCH ×3 (07:46→17:54)
[2017-01-05 08:00] VITALS: BP 157/94
[2017-01-05] MEDS: THIAMINE HCL 100 MG TABLET PO SCH (08:19)
[2017-01-05] MEDS: GABAPENTIN 300 MG CAPSULE PO SCH ×3 (08:19→17:08)
[2017-01-05] MEDS: LEVETIRACETAM (250 MG) 250 MG TABLET PO SCH ×2 (08:19→21:39)
[2017-01-05] MEDS: PANTOPRAZOLE 40 MG VIAL IV SCH (08:19)
[2017-01-05] MEDS: ASPIRIN 81 MG TAB.CHEW PO SCH (08:19)
[2017-01-05] MEDS: AMLODIPINE BESYLATE 10 MG TABLET PO SCH (08:20)
[2017-01-05] MEDS: LORAZEPAM INJ 2 MG/ML VIAL IV PRN ×2 (08:25→13:29)
[2017-01-05] MEDS: HYDROMORPHONE 1 MG/1 ML DISP.SYRIN IV PRN ×3 (10:34→22:12)
[2017-01-05 11:30] LABS: BASOPHILS % (AUTO) 0.3 % (0.0-2.0); EOSINOPHILS # (AUTO) 0.1 /CMM (0.0-0.7); EOSINOPHILS % (AUTO) 2.3 % (0.0-6.0); HEMATOCRIT 35 % (39-51); HEMOGLOBIN 12.2 g/dL (13.5-17.5); LYMPHOCYTES # (AUTO) 0.8 /CMM (0.8-4.8); LYMPHOCYTES % (AUTO) 14.7 % (20.0-44.0); MEAN CORPUSCULAR HEMOGLOBIN 33 PG (26.0-33.0); MEAN CORPUSCULAR HGB CONC 34 g/dl (31.0-36.0); MEAN CORPUSCULAR VOLUME 96 fL (80-96); MONOCYTES # (AUTO) 0.4 /CMM (0.1-1.30); MONOCYTES % (AUTO) 8.3 % (2.0-12.0); NEUTROPHILS # (AUTO) 3.9 /CMM (1.8-8.9); NEUTROPHILS % (AUTO) 74.4 % (43.0-81.0); PLATELET COUNT (AUTO) 107 /CMM (150-450); RDW COEFFICIENT OF VARIATION 16.3 (11.5-15.0); WHITE BLOOD COUNT (AUTO) 5.2 K/uL (4.3-11.0)
[2017-01-05 11:48] LABS: ALBUMIN 2.9 g/dL (3.4-5.0); BILIRUBIN,TOTAL 0.4 mg/dL (0.2-1.0); CALCIUM, SERUM 8.8 mg/dL (8.5-10.1); CREATININE 1.5 mg/dL (0.6-1.3); MAGNESIUM 1.8 mg/dL (1.8-2.4); PHOSPHORUS 4.3 mg/dL (2.5-4.9); POTASSIUM 4.1 mmol/L (3.5-5.1); TOTAL PROTEIN, SERUM 6.3 g/dL (6.4-8.2)
[2017-01-05 16:00] VITALS: BP_SYST 152; BP_SYST 154; BP_DIAS 78; BP_DIAS 83; BP_DIAS 93
[2017-01-05 20:00] VITALS: BP 140/96
[2017-01-05] MEDS: SENNOSIDES/DOCUSATE SODIUM 1 TAB TABLET PO SCH (21:39)
[2017-01-05] MEDS: INSULIN DETEMIR 100 UNIT/ML CARTRIDGE SQ SCH (21:40)
[2017-01-05] MEDS ORDERED: HYDROMORPHONE 1 MG/1 ML DISP.SYRIN ONE (22:08)
[2017-01-06] MEDS: NYSTATIN (PYXIS) 500,000 UNIT/5 ML ORAL.SUSP PO SCH ×5 (01:25→17:25)
[2017-01-06] MEDS: BLOOD SUGAR DIAGNOSTIC 1 EACH STRIP IN SCH ×5 (01:25→17:22)
[2017-01-06] MEDS ORDERED: HYDROMORPHONE 1 MG/1 ML DISP.SYRIN ONE (02:07)
[2017-01-06] MEDS: HYDROMORPHONE 1 MG/1 ML DISP.SYRIN IV PRN ×3 (02:15→12:59)
[2017-01-06] MEDS: INSULIN REGULAR, HUMAN 100 UNIT/ML 3 ML VIAL SQ PRN ×3 (05:52→17:26)
[2017-01-06 06:39] LABS: BASOPHILS % (AUTO) 0.4 % (0.0-2.0); EOSINOPHILS # (AUTO) 0.1 /CMM (0.0-0.7); HEMATOCRIT 33 % (39-51); HEMOGLOBIN 11.5 g/dL (13.5-17.5); LYMPHOCYTES # (AUTO) 1.1 /CMM (0.8-4.8); LYMPHOCYTES % (AUTO) 23.2 % (20.0-44.0); MEAN CORPUSCULAR HEMOGLOBIN 34 PG (26.0-33.0); MEAN CORPUSCULAR HGB CONC 35 g/dl (31.0-36.0); MEAN CORPUSCULAR VOLUME 96 fL (80-96); MONOCYTES # (AUTO) 0.5 /CMM (0.1-1.30); MONOCYTES % (AUTO) 10.9 % (2.0-12.0); NEUTROPHILS % (AUTO) 62.5 % (43.0-81.0); PLATELET COUNT (AUTO) 104 /CMM (150-450); RDW COEFFICIENT OF VARIATION 15.8 (11.5-15.0); RED BLOOD CELL COUNT(AUTO) 3.41 MIL/uL (4.5-6.0); WHITE BLOOD COUNT (AUTO) 4.8 K/uL (4.3-11.0)
[2017-01-06 06:44] LABS: CALCIUM, SERUM 8.8 mg/dL (8.5-10.1); CREATININE 1.5 mg/dL (0.6-1.3); MAGNESIUM 1.9 mg/dL (1.8-2.4); PHOSPHORUS 4.7 mg/dL (2.5-4.9); POTASSIUM 4.7 mmol/L (3.5-5.1)
[2017-01-06 08:00] VITALS: BP 120/69
[2017-01-06] MEDS: ASPIRIN 81 MG TAB.CHEW PO SCH (08:18)
[2017-01-06] MEDS: LEVETIRACETAM (250 MG) 250 MG TABLET PO SCH (08:18)
[2017-01-06] MEDS: GABAPENTIN 300 MG CAPSULE PO SCH ×3 (08:18→17:22)
[2017-01-06] MEDS: AMLODIPINE BESYLATE 10 MG TABLET PO SCH (08:18)
[2017-01-06] MEDS: PANTOPRAZOLE 40 MG VIAL IV SCH (08:18)
[2017-01-06] MEDS: THIAMINE HCL 100 MG TABLET PO SCH (08:18)
[2017-01-06] MEDS: INSULIN ASPART NOVOLOG 100 UNIT/ML CARTRIDGE SQ SCH ×3 (08:21→17:25)
[2017-01-06] MEDS: NEOMY SULF/BACITRAC ZN/POLY 15 GM TUBE TP PRN ×2 (08:27→17:22)
[2017-01-06] MEDS: LORAZEPAM INJ 2 MG/ML VIAL IV PRN (10:42)
[2017-01-06 14:35] VITALS: BP 169/103
[2017-01-06] MEDS ORDERED: TRAMADOL HCL 50 MG TABLET PO PRN (15:00)
[2017-01-06] MEDS ORDERED: LORAZEPAM 1 MG TABLET PO PRN (15:00)
[2017-01-06 16:00] VITALS: BP 159/100
[2017-01-06] MEDS ORDERED: INSULIN DETEMIR 100 UNIT/ML CARTRIDGE SQ SCH (17:00)
[2017-01-06] MEDS ORDERED: hydrALAZINE HCL 25 MG TABLET PO ONE (17:00)
[2017-01-06 18:15] VITALS: BP 144/86
== END 2017-01-06 18:29 | disposition home or self-care (01) | DRG 248 ==
LOC: ER 05:09 → MEDSG2 08:08
PROVIDERS: ADMIT Nurse Practitioner Acute Care; ATTEND Nurse Practitioner Acute Care
DX: A04.9 Bacterial intestinal infection, unspecified (principal); N17.0 Acute kidney failure with tubular necrosis; E87.2 Acidosis; E87.1 Hypo-osmolality and hyponatremia; E10.65 Type 1 diabetes mellitus with hyperglycemia; K86.1 Other chronic pancreatitis; G62.9 Polyneuropathy, unspecified; Z59.0 Homelessness; F17.210 Nicotine dependence, cigarettes, uncomplicated; I25.10 Atherosclerotic heart disease of native coronary artery without angina pectoris; Z90.49 Acquired absence of other specified parts of digestive tract; F10.239 Alcohol dependence with withdrawal, unspecified; Z79.4 Long term (current) use of insulin; K59.00 Constipation, unspecified
CPT/HCPCS: 36415; 71010-TC; 72128-TC; 80048-TC; 80053-TC; 80061-TC; 80076-TC; 81000-TC; 82962-TC; 83540-TC; 83605-TC; 83690-TC; 83735-TC; 84100-TC; 84443-TC; 84484-TC; 85025-TC; 85730-TC; 87040-TC; 87081-TC; 97001-TC; A4606; C9113; J1170; J1815; J2060; J2270; J2405; J2543; J3411; J3490; J7030; J7060; Z7610

== ENCOUNTER 2017-02-03 15:12 | Emergency (ER) | payer OTHER ==
[~2017-02-03] VITALS: Ht 177.8 cm; Wt 74.8 kg
[~2017-02-03 15:12] MED LIST changes: +AMLO2.5T PO; -BLOO-140 IN; +BLOO-668 IN; +GABA-534 PO; +THIA100T13 PO; -THIA100T74 PO
--- NOTE | 2017-02-03 15:16 | NUR ---
pt neal to er bed 12 accompanied by pd. here for medical clearance prior to booking. blood sugar was 390 in the field. denies any other complains at this time. awaiting md marquez.
--- NOTE | 2017-02-03 15:21 | NUR ---
dr smith at bedside for eval.
[2017-02-03] MEDS ORDERED: INSULIN REGULAR, HUMAN 100 UNIT/ML 10 ML VIAL ONE (15:24)
[2017-02-03] MEDS ORDERED: INSULIN REGULAR, HUMAN 100 UNIT/ML 10 ML VIAL SQ ONE (15:30)
--- NOTE | 2017-02-03 15:57 | NUR ---
mredically cleared. d/c to pd in stable condition.
[2017-02-03 15:58] VITALS: BP 142/87
== END 2017-02-03 15:59 ==
LOC: ER 15:13
DX: E10.65 Type 1 diabetes mellitus with hyperglycemia (principal); F10.10 Alcohol abuse, uncomplicated; I10 Essential (primary) hypertension; F17.200 Nicotine dependence, unspecified, uncomplicated; G62.9 Polyneuropathy, unspecified; Z79.4 Long term (current) use of insulin; Z79.82 Long term (current) use of aspirin; Z90.49 Acquired absence of other specified parts of digestive tract
CPT/HCPCS: A4606; J1815; Z7610

== ENCOUNTER 2018-04-21 10:57 | Emergency (ER) | payer OTHER ==
[~2018-04-21] VITALS: Ht 182.9 cm; Wt 83.9 kg
[~2018-04-21 10:57] MED LIST changes: -AMLO2.5T PO; +AMLO2.5T3 PO; +ASPI-1169 PO; -ASPI81TA2 PO
--- NOTE | 2018-04-21 11:00 | NUR ---
aaox3, BIB ra c/o syncopal episode and bs >500. rr is even and unlabored with nad noted. skin is warm and dry. placed on the monitor. awaiting md for eval.
[2018-04-21] MEDS ORDERED: ONDANSETRON HCL/PF 4 MG/2 ML VIAL IVP ONE (11:30)
[2018-04-21] MEDS ORDERED: IV NS 0.9% 1,000 ML BAG IV ONE ×2 (11:30→12:30)
[2018-04-21] MEDS ORDERED: HYDROMORPHONE 1 MG/1 ML DISP.SYRIN IV ONE ×3 (11:30→15:00)
[2018-04-21 11:39] LABS: BASOPHILS % (AUTO) 1.3 % (0.0-2.0); EOSINOPHILS % (AUTO) 1.8 % (0.0-6.0); HEMATOCRIT 30 % (39-51); HEMOGLOBIN 10.5 g/dL (13.5-17.5); LYMPHOCYTES % (AUTO) 38.6 % (20.0-44.0); MEAN CORPUSCULAR HGB CONC 35 g/dl (31.0-36.0); MEAN CORPUSCULAR VOLUME 96 fL (80-96); MONOCYTES # (AUTO) 0.2 /CMM (0.1-1.30); MONOCYTES % (AUTO) 8.4 % (2.0-12.0); NEUTROPHILS # (AUTO) 1.5 /CMM (1.8-8.9); NEUTROPHILS % (AUTO) 49.9 % (43.0-81.0); PLATELET COUNT (AUTO) 114 /CMM (150-450); RED BLOOD CELL COUNT(AUTO) 3.11 MIL/uL (4.5-6.0); WHITE BLOOD COUNT (AUTO) 2.7 K/uL (4.3-11.0)
[2018-04-21 11:46] LABS: ALCOHOL, BLOOD 137 mg/dL (0-0); LIPASE 39 U/L (73-393)
[2018-04-21] MEDS ORDERED: HYDROMORPHONE 1 MG/1 ML DISP.SYRIN ONE ×3 (11:49→15:12)
[2018-04-21] MEDS ORDERED: ONDANSETRON HCL/PF 4 MG/2 ML VIAL ONE (11:49)
[2018-04-21 11:53] LABS: TROPONIN I < 0.017 ng/mL (0.00-0.056)
[2018-04-21 12:06] LABS: ALBUMIN 3.4 g/dL (3.4-5.0); BILIRUBIN,DIRECT 0.2 mg/dL (0.0-0.2); BILIRUBIN,TOTAL 0.8 mg/dL (0.2-1.0); CALCIUM, SERUM 8.7 mg/dL (8.5-10.1); CREATININE 1.8 mg/dL (0.6-1.3); POTASSIUM 4.2 mmol/L (3.5-5.1); TOTAL PROTEIN, SERUM 7.4 g/dL (6.4-8.2)
[2018-04-21] MEDS ORDERED: INSULIN REGULAR, HUMAN 100 UNIT/ML 10 ML VIAL ONE (12:09)
[2018-04-21] MEDS ORDERED: INSULIN REGULAR, HUMAN 100 UNIT/ML 10 ML VIAL IV ONE (12:30)
[2018-04-21] MEDS ORDERED: LORAZEPAM INJ 2 MG/ML VIAL ONE (12:50)
[2018-04-21] MEDS ORDERED: LORAZEPAM INJ 2 MG/ML VIAL IV ONE (13:00)
--- NOTE | 2018-04-21 14:30 | NUR ---
[facility] CALLED PATIENT WILL BE TRANSFERED TO [facility] ACCEPTED BY DR STEEN ROOM 213-B NUMBER TO CALL FOR REPORT IS [facility] ETA [phone]
--- NOTE | 2018-04-21 15:45 | NUR ---
Patient is eating sandwich at BS.
--- NOTE | 2018-04-21 15:53 | NUR ---
CALLED [facility] UPDATED ETA WAS 1630.
[2018-04-21 16:05] VITALS: BP 146/94
--- NOTE | 2018-04-21 16:17 | NUR ---
Report given to REBECA Quiles for [facility] going to RM 213B.
[2018-04-21 16:37] LABS: APPEARANCE,URINE Clear (CLEAR); BILIRUBIN,URINE Negative (NEGATIVE); BLOOD, URINE Small Ery/uL (NEGATIVE); COLOR,URINE Light yellow (YELLOW); KETONES,URINE Negative (NEGATIVE); LEUKOCYTE ESTERASE ,URINE Negative (NEGATIVE); NITRITE, URINE Negative (NEGATIVE); PROTEIN,URINE 30 mg/dl (NEGATIVE); UGLUCOSE 500 MG/DL mg/dL (NEGATIVE); UROBILINOGEN,URINE 0.2 EU/dL (0.2)
[2018-04-21 17:08] LABS: BACTERIA,URINE Few /HPF (None Seen); SQUAMOUS EPITHELIAL CELL,UR Few /HPF (None Seen); WBC,URINE 0-2 /HPF (0-3)
--- NOTE | 2018-04-21 17:28 | NUR ---
Report given to [facility] for transport to [facility]
== END 2018-04-21 17:37 | disposition short-term general hospital (02) ==
LOC: ER 10:59
DX: E10.65 Type 1 diabetes mellitus with hyperglycemia (principal); D61.818 Other pancytopenia; E87.1 Hypo-osmolality and hyponatremia; F10.239 Alcohol dependence with withdrawal, unspecified; Y90.6 Blood alcohol level of 120-199 mg/100 ml; K86.1 Other chronic pancreatitis; Z86.73 Personal history of transient ischemic attack (TIA), and cerebral infarction without residual deficits; E10.40 Type 1 diabetes mellitus with diabetic neuropathy, unspecified; Y90.9 Presence of alcohol in blood, level not specified; Z90.49 Acquired absence of other specified parts of digestive tract; F17.200 Nicotine dependence, unspecified, uncomplicated; Z79.82 Long term (current) use of aspirin; Z79.4 Long term (current) use of insulin
CPT/HCPCS: 36415; 71045; 74176; 80048; 80076; 80305; 81001; 82010; 82962 ×5; 83690; 84484; 85025; 85610; 87081; 93005; 96361; 96374; 96375; 96376; 99285; A4606; G0480; J1170 ×3; J1815; J2060; J2405; J7030 ×2; Z7610; 81000-TC